=== PATIENT | male | born 1940 | race Caucasian/White ===

== ENCOUNTER 2017-12-09 12:47 | Inpatient (IN) ==
[2017-12-09 14:20] LABS: Basophils % 0.7 % (0.0-0.8); Eosinophils # 0.1 10*3/uL (0.0-0.87); Hematocrit 37.2 VOL% (42.0-52.0); Hemoglobin 12.8 GM/DL (14.0-18.0); Immature Granulocytes % 0.5 %; Immature Granulocytes Absolute 0.03 #; Lymphocytes # 2.1 10*3/uL (1.4-4.0); Lymphocytes % 34.3 % (21.2-54.2); Mean Corpuscular HGB Conc 34.4 GM/DL (32-36); Mean Corpuscular Hemoglobin 32 PG (27-34); Mean Corpuscular Volume 91.9 FL (87-102); Mean Platelet Volume 9.1 FL (9.6-12.0); Monocytes # 0.6 10*3/uL (0.11-0.8); Monocytes % 10.5 % (1.7-12.7); Neutrophils # 3.3 10*3/uL (1.4-7.4); Platelet Count 238 T/CUMM (130-400); Red Blood Count 4.05 MC/CUMM (3.8-5.5); Red Cell Distribution Width 13.2 % (9.3-17.3); White Blood Count 6.1 T/CUMM (4-12)
[2017-12-09 14:30] LABS: PT Patient Result 10.8 SECS; Partial Thromboplastin Time 26.1 SECS (0-40)
[2017-12-09 15:00] LABS: Calcium 8.9 MG/DL (8.5-10.1); Potassium 4.1 MMOL/L (3.5-5.1); Troponin I Only 0.029 NG/ML (0.00-0.045)
[2017-12-09] MEDS ORDERED: GLUCAGON 1 MG VIAL IM PRN (15:59)
[2017-12-09] MEDS ORDERED: DEXTROSE 50% 25 GM/50 ML VIAL IV PRN (15:59)
[2017-12-09] MEDS ORDERED: ACETAMINOPHEN 325 MG TABLET PO PRN (15:59)
[2017-12-09] MEDS ORDERED: MORPHINE 4 MG/1 ML VIAL IV PRN (15:59)
[2017-12-09] MEDS ORDERED: ONDANSETRON 4 MG/2 ML VIAL IV PRN (15:59)
[2017-12-09] MEDS ORDERED: ENOXAPARIN 40 MG/0.4 ML SYRINGE SUBCUT SCH (16:00)
[2017-12-09] MEDS: INSULIN LISPRO 100 UNIT/ML SUBCUT SCH ×2 (17:54→20:09)
[2017-12-09] MEDS: PANTOPRAZOLE 40 MG TABLET PO SCH (17:55)
[2017-12-09] MEDS: RANOLAZINE 500 MG TABLET PO SCH (21:42)
[2017-12-10 04:28] LABS: Basophils % 0.6 % (0.0-0.8); Eosinophils # 0.1 10*3/uL (0.0-0.87); Eosinophils % 1.1 % (0.00-10.9); Hematocrit 38.6 VOL% (42.0-52.0); Hemoglobin 12.7 GM/DL (14.0-18.0); Immature Granulocytes % 0.4 %; Immature Granulocytes Absolute 0.03 #; Lymphocytes # 2.9 10*3/uL (1.4-4.0); Mean Corpuscular HGB Conc 32.9 GM/DL (32-36); Mean Corpuscular Hemoglobin 31 PG (27-34); Mean Corpuscular Volume 93.5 FL (87-102); Mean Platelet Volume 9.6 FL (9.6-12.0); Monocytes # 0.9 10*3/uL (0.11-0.8); Monocytes % 12.1 % (1.7-12.7); Neutrophils # 3.1 10*3/uL (1.4-7.4); Neutrophils % 44.8 % (38.7-73.9); Platelet Count 217 T/CUMM (130-400); Red Blood Count 4.13 MC/CUMM (3.8-5.5); Red Cell Distribution Width 13.3 % (9.3-17.3)
[2017-12-10 05:02] LABS: Calcium 8.2 MG/DL (8.5-10.1); Osmolality,Calculated 282.5 MOS/KG (273-304); Potassium 4.4 MMOL/L (3.5-5.1); Risk Ratio 2.17; Thyroid Stimulating Hormone 4.81 uIU/ml (0.358-3.74); VLDL CHOLESTEROL 29.6 MG/DL
[2017-12-10] MEDS ORDERED: AMIODARONE 200 MG TABLET PO SCH (09:00)
[2017-12-10] MEDS ORDERED: ASPIRIN EC 325 MG TABLET PO SCH (09:00)
[2017-12-10] MEDS: ATORVASTATIN 80 MG TABLET PO SCH (10:07)
[2017-12-10] MEDS: OMEGA 3 ACID ETHYL ESTERS 1 GM CAPSULE PO SCH (10:07)
[2017-12-10] MEDS: RANOLAZINE 500 MG TABLET PO SCH ×2 (10:07→20:31)
[2017-12-10] MEDS: TAMSULOSIN 0.4 MG CAPSULE PO SCH (10:07)
[2017-12-10] MEDS: SERTRALINE 100 MG TABLET PO SCH (10:07)
[2017-12-10] MEDS: FINASTERIDE 5 MG TABLET PO SCH (10:07)
[2017-12-10] MEDS: hydroCHLOROthiazide 12.5 MG CAPSULE PO SCH (10:07)
[2017-12-10] MEDS: LISINOPRIL 10 MG TABLET PO SCH (10:07)
[2017-12-10] MEDS: INSULIN LISPRO 100 UNIT/ML SUBCUT SCH ×4 (10:08→20:25)
[2017-12-10] MEDS: MULTIVITAMIN (CENTRUM) TABLET PO SCH (10:08)
[2017-12-10] MEDS: FLUTICASONE 50 MCG NASAL SPRAY 16 GM BOTTLE BOTH NARES SCH (11:18)
[2017-12-10] MEDS ORDERED: ASPIRIN EC 81 MG TABLET PO SCH (13:28)
[2017-12-10] MEDS: amLODIPine 5 MG TABLET PO SCH (14:53)
[2017-12-10] MEDS: ENOXAPARIN 120 MG/0.8 ML SYRINGE SUBCUT SCH (14:54)
[2017-12-10] MEDS: sitaGLIPtin 100 MG TABLET PO SCH (15:34)
[2017-12-10] MEDS: GLIMEPIRIDE 4 MG TABLET PO SCH (17:04)
[2017-12-10] MEDS: PANTOPRAZOLE 40 MG TABLET PO SCH (17:04)
[2017-12-10] MEDS: metFORMIN 500 MG TABLET PO SCH (20:25)
[2017-12-11] MEDS: ENOXAPARIN 120 MG/0.8 ML SYRINGE SUBCUT SCH (01:49)
[2017-12-11 09:10] LABS: Basophils % 0.7 % (0.0-0.8); Eosinophils # 0.1 10*3/uL (0.0-0.87); Eosinophils % 0.8 % (0.00-10.9); Hematocrit 39.2 VOL% (42.0-52.0); Hemoglobin 13.3 GM/DL (14.0-18.0); Immature Granulocytes % 0.3 %; Immature Granulocytes Absolute 0.02 #; Lymphocytes # 1.7 10*3/uL (1.4-4.0); Lymphocytes % 28.5 % (21.2-54.2); Mean Corpuscular HGB Conc 33.9 GM/DL (32-36); Mean Corpuscular Hemoglobin 31 PG (27-34); Mean Corpuscular Volume 92.7 FL (87-102); Monocytes # 0.5 10*3/uL (0.11-0.8); Monocytes % 8.3 % (1.7-12.7); Neutrophils # 3.7 10*3/uL (1.4-7.4); Neutrophils % 61.4 % (38.7-73.9); Platelet Count 212 T/CUMM (130-400); Red Blood Count 4.23 MC/CUMM (3.8-5.5); Red Cell Distribution Width 13.2 % (9.3-17.3)
[2017-12-11] MEDS: metFORMIN 500 MG TABLET PO SCH (09:34)
[2017-12-11] MEDS: MULTIVITAMIN (CENTRUM) TABLET PO SCH (09:34)
[2017-12-11] MEDS: RANOLAZINE 500 MG TABLET PO SCH (09:34)
[2017-12-11] MEDS: amLODIPine 5 MG TABLET PO SCH (09:34)
[2017-12-11] MEDS: GLIMEPIRIDE 4 MG TABLET PO SCH (09:34)
[2017-12-11] MEDS: ATORVASTATIN 80 MG TABLET PO SCH (09:35)
[2017-12-11] MEDS: TAMSULOSIN 0.4 MG CAPSULE PO SCH (09:35)
[2017-12-11] MEDS: FINASTERIDE 5 MG TABLET PO SCH (09:35)
[2017-12-11] MEDS: OMEGA 3 ACID ETHYL ESTERS 1 GM CAPSULE PO SCH (09:35)
[2017-12-11] MEDS: hydroCHLOROthiazide 12.5 MG CAPSULE PO SCH (09:35)
[2017-12-11] MEDS: LISINOPRIL 10 MG TABLET PO SCH (09:35)
[2017-12-11] MEDS: SERTRALINE 100 MG TABLET PO SCH (09:35)
[2017-12-11] MEDS: sitaGLIPtin 100 MG TABLET PO SCH (09:36)
[2017-12-11 09:42] LABS: Calcium 8.6 MG/DL (8.5-10.1); Potassium 4.4 MMOL/L (3.5-5.1)
[2017-12-11 09:55] LABS: Basophils % 0.6 % (0.0-0.8); Eosinophils # 0.1 10*3/uL (0.0-0.87); Eosinophils % 1.1 % (0.00-10.9); Hemoglobin 13.8 GM/DL (14.0-18.0); Immature Granulocytes % 0.2 %; Immature Granulocytes Absolute 0.01 #; Lymphocytes % 29.7 % (21.2-54.2); Mean Corpuscular HGB Conc 34.5 GM/DL (32-36); Mean Corpuscular Hemoglobin 31 PG (27-34); Mean Corpuscular Volume 89.9 FL (87-102); Mean Platelet Volume 9.2 FL (9.6-12.0); Monocytes # 0.5 10*3/uL (0.11-0.8); Monocytes % 7.8 % (1.7-12.7); Neutrophils % 60.6 % (38.7-73.9); Platelet Count 223 T/CUMM (130-400); Red Blood Count 4.45 MC/CUMM (3.8-5.5); Red Cell Distribution Width 13.3 % (9.3-17.3); White Blood Count 6.6 T/CUMM (4-12)
[2017-12-11] MEDS: INSULIN LISPRO 100 UNIT/ML SUBCUT SCH ×2 (10:05→11:53)
[2017-12-11] MEDS: FLUTICASONE 50 MCG NASAL SPRAY 16 GM BOTTLE BOTH NARES SCH (10:06)
[2017-12-11 10:28] LABS: Osmolality,Calculated 285.8 MOS/KG (273-304); Potassium 4.6 MMOL/L (3.5-5.1)
[2017-12-11 11:58] VITALS: BP 133/65
[2017-12-11] MEDS ORDERED: APIXABAN 5 MG TABLET PO SCH (21:00)
== END 2017-12-11 14:25 | disposition home or self-care (01) | DRG 310 ==
LOC: N.ED 12:47 → SUATTDRO 15:24 → N.EDINP 15:24 → N.TELES 17:24
PROVIDERS: ADMIT Internal Medicine; ATTEND Internal Medicine

== ENCOUNTER 2020-05-23 09:38 | Observation (INO) ==
[2020-05-23 10:27] LABS: Basophils % 0.6 % (0.0-0.8); Eosinophils # 0.1 10*3/uL (0.0-0.87); Eosinophils % 1.2 % (0.00-10.9); Hematocrit 33.2 VOL% (42.0-52.0); Hemoglobin 10.9 GM/DL (14.0-18.0); Immature Granulocytes % 0.3 %; Immature Granulocytes Absolute 0.02 #; Lymphocytes # 1.6 10*3/uL (1.4-4.0); Lymphocytes % 24.1 % (21.2-54.2); Mean Corpuscular HGB Conc 32.8 GM/DL (32-36); Mean Corpuscular Volume 84.9 FL (87-102); Mean Platelet Volume 8.7 FL (9.6-12.0); Monocytes % 8.6 % (1.7-12.7); Neutrophils % 65.2 % (38.7-73.9); Platelet Count 245 T/CUMM (130-400); Red Blood Count 3.91 MC/CUMM (3.8-5.5); Red Cell Distribution Width 15.2 % (9.3-17.3); White Blood Count 6.4 T/CUMM (4-12)
[2020-05-23 10:37] LABS: Alanine Aminotransferase 49 U/L (16-61); Albumin 3.4 G/DL (3.4-5.0); Alkaline Phosphatase 84 U/L (45-117); Aspartate Amino Transferase 27 U/L (0-37); Bilirubin,Total < 0.39 MG/DL (0.2-1.0); Blood Urea Nitrogen 18 MG/DL (7-18); Estimated Glom Filtration Rate 59 ML/MIN; Glucose 238 MG/DL (74-106); Osmolality,Calculated 279.1 MOS/KG (273-304); Total Protein 6.7 G/DL (6.4-8.3)
[2020-05-23 10:51] LABS: INR 1.1; PT Patient Result 11.5 SECS (9.8-11.9); Partial Thromboplastin Time 29.3 SECS (23.9-33.8)
[2020-05-23] MEDS ORDERED: FUROSEMIDE 40 MG/4 ML VIAL IV STA (12:43)
[2020-05-23] MEDS ORDERED: MAGNESIUM SULF RIDER 4 GM in PREMIX 1 EACH IV PRN (12:44)
[2020-05-23] MEDS ORDERED: MAGNESIUM SULF RIDER 2 GM in PREMIX 1 EACH IV PRN (12:44)
[2020-05-23] MEDS ORDERED: PANTOPRAZOLE 40 MG TABLET PO SCH (16:30)
[2020-05-23] MEDS ORDERED: metFORMIN 500 MG TABLET PO SCH (17:00)
[2020-05-23] MEDS: GLIMEPIRIDE 4 MG TABLET PO SCH (17:31)
[2020-05-23] MEDS ORDERED: ATORVASTATIN 80 MG TABLET PO SCH (21:00)
[2020-05-23] MEDS ORDERED: SERTRALINE 100 MG TABLET PO SCH (21:00)
[2020-05-23] MEDS ORDERED: INSULIN GLARGINE 100 UNIT/ML SUBCUT SCH (21:00)
[2020-05-23] MEDS: APIXABAN 5 MG TABLET PO SCH (23:09)
[2020-05-23] MEDS: OMEGA 3 ACID ETHYL ESTERS 1 GM CAPSULE PO SCH (23:09)
[2020-05-23] MEDS: METOPROLOL TARTRATE 25 MG TABLET PO SCH (23:10)
[2020-05-23] MEDS: ACETAMINOPHEN 325 MG TABLET PO PRN (23:11)
[2020-05-24] MEDS ORDERED: BISACODYL 5 MG TABLET PO PRN (07:34)
[2020-05-24] MEDS ORDERED: SIMETHICONE CHEW 125 MG TABLET PO PRN (07:34)
[2020-05-24] MEDS ORDERED: DEXTROSE 50% 25 GM/50 ML VIAL IV PRN (07:34)
[2020-05-24] MEDS ORDERED: ALUMINUM/MAGNES/SIMETH MAX STR 30 ML UDCUP PO PRN (07:34)
[2020-05-24] MEDS ORDERED: CALCIUM CARBONATE CHEW 500 MG TABLET PO PRN (07:34)
[2020-05-24] MEDS ORDERED: LACTULOSE 20 GM/30 ML UDCUP PO PRN (07:34)
[2020-05-24] MEDS ORDERED: MORPHINE 4 MG/1 ML VIAL IV PRN (07:34)
[2020-05-24] MEDS ORDERED: POTASSIUM CHLORIDE 20 MEQ TABLET PO PRN (07:34)
[2020-05-24] MEDS ORDERED: diphenhydrAMINE CAP 25 MG CAPSULE PO PRN (07:34)
[2020-05-24] MEDS ORDERED: hydrALAZINE 20 MG/1 ML VIAL IV PRN (07:34)
[2020-05-24] MEDS ORDERED: GLUCAGON 1 MG VIAL IM PRN (07:34)
[2020-05-24] MEDS ORDERED: ZALEPLON 5 MG CAPSULE PO PRN (07:34)
[2020-05-24] MEDS ORDERED: guaiFENesin/DM ER 600-30 MG TABLET PO PRN (07:34)
[2020-05-24] MEDS ORDERED: ONDANSETRON 4 MG/2 ML VIAL IV PRN (07:34)
[2020-05-24] MEDS ORDERED: amLODIPine 10 MG TABLET PO SCH (09:00)
[2020-05-24] MEDS ORDERED: MULTIVITAMIN (CENTRUM) TABLET PO SCH (09:00)
[2020-05-24] MEDS ORDERED: FINASTERIDE 5 MG TABLET PO SCH (09:00)
[2020-05-24] MEDS ORDERED: ASPIRIN EC 81 MG TABLET PO SCH (09:00)
[2020-05-24] MEDS ORDERED: sitaGLIPtin 100 MG TABLET PO SCH (09:00)
[2020-05-24] MEDS ORDERED: FUROSEMIDE 20 MG TABLET PO SCH (09:00)
[2020-05-24] MEDS: GLIMEPIRIDE 4 MG TABLET PO SCH (09:49)
[2020-05-24] MEDS: APIXABAN 5 MG TABLET PO SCH (09:49)
[2020-05-24] MEDS: OMEGA 3 ACID ETHYL ESTERS 1 GM CAPSULE PO SCH (09:49)
[2020-05-24] MEDS: METOPROLOL TARTRATE 25 MG TABLET PO SCH (09:49)
[2020-05-24] MEDS ORDERED: CETIRIZINE 10 MG TABLET PO SCH (10:00)
[2020-05-24] MEDS ORDERED: FLUTICASONE 50 MCG NASAL SPRAY 16 GM BOTTLE BOTH NARES SCH (10:00)
[2020-05-24] MEDS: ACETAMINOPHEN 325 MG TABLET PO PRN (10:29)
[2020-05-24] MEDS ORDERED: INSULIN LISPRO 100 UNIT/ML SUBCUT SCH (11:30)
[2020-05-24 12:24] VITALS: BP 130/55
[2020-05-24] MEDS ORDERED: ALBUTEROL 2.5 MG/3 ML NEB RESP TX SCH (13:00)
== END 2020-05-24 14:32 | disposition home or self-care (01) ==
LOC: N.EDINP 09:38 → N.ED 09:38 → N.EDINP 14:18 → N.TELES 14:24
PROVIDERS: ADMIT Internal Medicine Cardiovascular Disease; ATTEND Internal Medicine Cardiovascular Disease

== ENCOUNTER 2021-08-03 15:06 | Inpatient (IN) ==
[2021-08-03 15:30] LABS: Basophils % 0.3 % (0.0-0.8); Eosinophils # 0.1 10*3/uL (0.0-0.87); Eosinophils % 0.7 % (0.00-10.9); Hematocrit 39.7 VOL% (42.0-52.0); Hemoglobin 12.8 GM/DL (14.0-18.0); Immature Granulocytes % 0.5 %; Immature Granulocytes Absolute 0.04 #; Lymphocytes # 1.4 10*3/uL (1.4-4.0); Lymphocytes % 16.3 % (21.2-54.2); Mean Corpuscular HGB Conc 32.2 GM/DL (32-36); Mean Corpuscular Volume 87.1 FL (87-102); Mean Platelet Volume 8.3 FL (9.6-12.0); Monocytes % 9.6 % (1.7-12.7); Neutrophils % 72.6 % (38.7-73.9); Platelet Count 309 T/CUMM (130-400); Red Blood Count 4.56 MC/CUMM (3.8-5.5); Red Cell Distribution Width 14.6 % (9.3-17.3); White Blood Count 8.7 T/CUMM (4-12)
[2021-08-03 15:43] LABS: PT Patient Result 11.6 SECS (10.5-12.0); Partial Thromboplastin Time 28.8 SECS (23.8-32.1)
[2021-08-03 16:00] LABS: Albumin 3.9 G/DL (3.4-5.0); Bilirubin,Total 0.4 MG/DL (0.20-1.00); Calcium 9.9 MG/DL (8.5-10.1); Osmolality,Calculated 283.1 MOS/KG (273-304); Potassium 4.7 MMOL/L (3.5-5.1); Total Protein 7.8 G/DL (6.4-8.2)
[2021-08-03] MEDS ORDERED: GLUCAGON 1 MG VIAL IM PRN (16:40)
[2021-08-03] MEDS ORDERED: DEXTROSE 10% 250 ML BAG IV PRN (16:40)
[2021-08-03] MEDS ORDERED: ASPIRIN 325 MG TABLET PO STA (16:52)
[2021-08-03] MEDS ORDERED: POTASSIUM CHLORIDE 20 MEQ TABLET PO PRN ×2 (17:06)
[2021-08-03] MEDS ORDERED: MORPHINE 2 MG/1 ML SYRINGE IV PRN (17:06)
[2021-08-03] MEDS ORDERED: MAGNESIUM SULF RIDER 2 GM/50 ML PREMIX IV PRN (17:06)
[2021-08-03] MEDS ORDERED: hydrALAZINE 20 MG/1 ML VIAL IV PRN (17:06)
[2021-08-03] MEDS ORDERED: MAGNESIUM SULF RIDER 4 GM/100 ML PREMIX IV PRN (17:06)
[2021-08-03] MEDS ORDERED: guaiFENesin/DM ER 600-30 MG TABLET PO PRN (17:06)
[2021-08-03] MEDS ORDERED: DOCUSATE SODIUM 100 MG CAPSULE PO PRN (17:06)
[2021-08-03] MEDS ORDERED: ONDANSETRON 4 MG/2 ML VIAL IV PRN (17:06)
[2021-08-03] MEDS ORDERED: ACETAMINOPHEN 325 MG TABLET PO PRN (17:06)
[2021-08-03] MEDS ORDERED: SODIUM CHLORIDE 0.9% 1,000 ML IV SCH (17:30)
[2021-08-03] MEDS ORDERED: NITROGLYCERIN SL 0.4 MG TABLET SL PRN (17:38)
[2021-08-03] MEDS ORDERED: SODIUM CHLORIDE 0.9% 250 ML IV ONE (18:21)
[2021-08-03] MEDS ORDERED: NON-FORMULARY MEDICATION (Omeprazole 20 MG capsule,delayed release(DR/EC)) PO SCH (19:00)
[2021-08-03] MEDS: ALBUTEROL 2.5 MG/3 ML NEB RESP TX SCH (19:37)
[2021-08-03] MEDS: TAMSULOSIN 0.4 MG CAPSULE PO SCH (21:14)
[2021-08-03] MEDS: ATORVASTATIN 80 MG TABLET PO SCH (21:14)
[2021-08-03] MEDS: INSULIN REGULAR 100 UNIT/ML SUBCUT SCH (21:15)
[2021-08-03] MEDS: SERTRALINE 100 MG TABLET PO SCH (21:15)
[2021-08-03] MEDS: LOSARTAN 25 MG TABLET PO SCH (21:15)
[2021-08-03] MEDS: APIXABAN 5 MG TABLET PO SCH (21:15)
[2021-08-03] MEDS: carvediloL 12.5 MG TABLET PO SCH (21:15)
[2021-08-04] MEDS: ALBUTEROL 2.5 MG/3 ML NEB RESP TX SCH ×4 (01:55→20:01)
[2021-08-04 05:30] LABS: Basophils % 0.3 % (0.0-0.8); Eosinophils % 0.1 % (0.00-10.9); Hematocrit 33.6 VOL% (42.0-52.0); Hemoglobin 10.6 GM/DL (14.0-18.0); Immature Granulocytes % 0.7 %; Immature Granulocytes Absolute 0.05 #; Lymphocytes # 1.3 10*3/uL (1.4-4.0); Lymphocytes % 17.7 % (21.2-54.2); Mean Corpuscular HGB Conc 31.5 GM/DL (32-36); Mean Corpuscular Volume 88.7 FL (87-102); Mean Platelet Volume 8.7 FL (9.6-12.0); Monocytes % 12.2 % (1.7-12.7); Platelet Count 230 T/CUMM (130-400); Red Blood Count 3.79 MC/CUMM (3.8-5.5); Red Cell Distribution Width 14.6 % (9.3-17.3); White Blood Count 7.2 T/CUMM (4-12)
[2021-08-04 05:38] LABS: Osmolality,Calculated 279.2 MOS/KG (273-304); Potassium 4.1 MMOL/L (3.5-5.1); Risk Ratio 1.72; VLDL Cholesterol 12.2 MG/DL
[2021-08-04] MEDS ORDERED: amLODIPine 10 MG TABLET PO SCH (09:00)
[2021-08-04] MEDS: FUROSEMIDE 40 MG TABLET PO SCH (09:32)
[2021-08-04] MEDS: sitaGLIPtin 25 MG TABLET PO SCH (09:32)
[2021-08-04] MEDS: APIXABAN 5 MG TABLET PO SCH ×2 (09:33→21:02)
[2021-08-04] MEDS: PANTOPRAZOLE 40 MG TABLET PO SCH (09:33)
[2021-08-04] MEDS: ISOSORBIDE MONONITRATE 30 MG TABLET PO SCH (09:33)
[2021-08-04] MEDS: LOSARTAN 25 MG TABLET PO SCH (09:33)
[2021-08-04] MEDS: GLIMEPIRIDE 4 MG TABLET PO SCH ×2 (09:33→17:55)
[2021-08-04] MEDS: FINASTERIDE 5 MG TABLET PO SCH (09:33)
[2021-08-04] MEDS: carvediloL 12.5 MG TABLET PO SCH (09:33)
[2021-08-04] MEDS: INSULIN REGULAR 100 UNIT/ML SUBCUT SCH ×4 (09:38→21:02)
[2021-08-04] MEDS ORDERED: FLUTICASONE 50 MCG NASAL SPRAY 16 GM BOTTLE BOTH NARES PRN (10:41)
[2021-08-04] MEDS ORDERED: DOCUSATE SODIUM 100 MG CAPSULE PO PRN (10:41)
[2021-08-04] MEDS: SOTALOL 80 MG TABLET PO SCH (11:45)
[2021-08-04] MEDS ORDERED: FUROSEMIDE 40 MG/4 ML VIAL IV ONE (16:29)
[2021-08-04] MEDS: SERTRALINE 100 MG TABLET PO SCH (21:01)
[2021-08-04] MEDS: ATORVASTATIN 80 MG TABLET PO SCH (21:02)
[2021-08-04] MEDS: INSULIN GLARGINE 100 UNIT/ML SUBCUT SCH (21:02)
[2021-08-04] MEDS: TAMSULOSIN 0.4 MG CAPSULE PO SCH (21:02)
[2021-08-05] MEDS: ALBUTEROL 2.5 MG/3 ML NEB RESP TX SCH ×4 (00:33→19:20)
[2021-08-05 06:29] LABS: Basophils % 0.3 % (0.0-0.8); Eosinophils % 0.5 % (0.00-10.9); Hematocrit 33.6 VOL% (42.0-52.0); Hemoglobin 10.7 GM/DL (14.0-18.0); Immature Granulocytes % 0.5 %; Immature Granulocytes Absolute 0.04 #; Lymphocytes # 1.3 10*3/uL (1.4-4.0); Lymphocytes % 17.7 % (21.2-54.2); Mean Corpuscular HGB Conc 31.8 GM/DL (32-36); Mean Corpuscular Volume 87.3 FL (87-102); Mean Platelet Volume 8.6 FL (9.6-12.0); Monocytes % 12.6 % (1.7-12.7); Neutrophils % 68.4 % (38.7-73.9); Platelet Count 260 T/CUMM (130-400); Red Blood Count 3.85 MC/CUMM (3.8-5.5); Red Cell Distribution Width 14.6 % (9.3-17.3); White Blood Count 7.4 T/CUMM (4-12)
[2021-08-05 06:42] LABS: Calcium 9.2 MG/DL (8.5-10.1)
[2021-08-05] MEDS ORDERED: ASPIRIN EC 81 MG TABLET PO SCH (09:00)
[2021-08-05] MEDS: INSULIN REGULAR 100 UNIT/ML SUBCUT SCH ×4 (09:47→21:20)
[2021-08-05] MEDS ORDERED: DEXTROSE 10% 25 GM/250 ML BAG IV PRN (10:21)
[2021-08-05] MEDS: FUROSEMIDE 40 MG TABLET PO SCH (10:49)
[2021-08-05] MEDS: MULTIVITAMIN (CENTRUM) TABLET PO SCH (10:49)
[2021-08-05] MEDS: GLIMEPIRIDE 4 MG TABLET PO SCH ×2 (10:50→18:12)
[2021-08-05] MEDS: FINASTERIDE 5 MG TABLET PO SCH (10:50)
[2021-08-05] MEDS: SOTALOL 80 MG TABLET PO SCH (10:50)
[2021-08-05] MEDS: ISOSORBIDE MONONITRATE 30 MG TABLET PO SCH (10:50)
[2021-08-05] MEDS: PANTOPRAZOLE 40 MG TABLET PO SCH (10:51)
[2021-08-05] MEDS: sitaGLIPtin 25 MG TABLET PO SCH (10:51)
[2021-08-05] MEDS: LOSARTAN 25 MG TABLET PO SCH (10:51)
[2021-08-05] MEDS: MONTELUKAST 10 MG TABLET PO SCH (10:51)
[2021-08-05] MEDS: SERTRALINE 100 MG TABLET PO SCH (21:19)
[2021-08-05] MEDS: ATORVASTATIN 80 MG TABLET PO SCH (21:19)
[2021-08-05] MEDS: TAMSULOSIN 0.4 MG CAPSULE PO SCH (21:19)
[2021-08-05] MEDS: INSULIN GLARGINE 100 UNIT/ML SUBCUT SCH (21:20)
[2021-08-06] MEDS: ALBUTEROL 2.5 MG/3 ML NEB RESP TX SCH ×3 (00:55→14:53)
[2021-08-06 06:40] LABS: Basophils % 0.4 % (0.0-0.8); Eosinophils % 0.5 % (0.00-10.9); Hematocrit 34.7 VOL% (42.0-52.0); Hemoglobin 10.9 GM/DL (14.0-18.0); Immature Granulocytes % 0.4 %; Immature Granulocytes Absolute 0.03 #; Lymphocytes # 1.3 10*3/uL (1.4-4.0); Lymphocytes % 16.6 % (21.2-54.2); Mean Corpuscular HGB Conc 31.4 GM/DL (32-36); Mean Corpuscular Volume 88.1 FL (87-102); Mean Platelet Volume 8.7 FL (9.6-12.0); Monocytes % 13.6 % (1.7-12.7); Neutrophils % 68.5 % (38.7-73.9); Platelet Count 266 T/CUMM (130-400); Red Blood Count 3.94 MC/CUMM (3.8-5.5); Red Cell Distribution Width 14.6 % (9.3-17.3)
[2021-08-06 07:05] LABS: Calcium 8.9 MG/DL (8.5-10.1); Osmolality,Calculated 272.1 MOS/KG (273-304); Potassium 3.8 MMOL/L (3.5-5.1)
[2021-08-06] MEDS: FINASTERIDE 5 MG TABLET PO SCH (08:45)
[2021-08-06] MEDS: MULTIVITAMIN (CENTRUM) TABLET PO SCH (08:46)
[2021-08-06] MEDS: ISOSORBIDE MONONITRATE 30 MG TABLET PO SCH (08:46)
[2021-08-06] MEDS: MONTELUKAST 10 MG TABLET PO SCH (08:46)
[2021-08-06] MEDS: PANTOPRAZOLE 40 MG TABLET PO SCH (08:46)
[2021-08-06] MEDS: sitaGLIPtin 25 MG TABLET PO SCH (08:47)
[2021-08-06] MEDS: SOTALOL 80 MG TABLET PO SCH (08:47)
[2021-08-06] MEDS: GLIMEPIRIDE 4 MG TABLET PO SCH (08:47)
[2021-08-06] MEDS: FUROSEMIDE 40 MG TABLET PO SCH (08:47)
[2021-08-06] MEDS: LOSARTAN 25 MG TABLET PO SCH (08:47)
[2021-08-06] MEDS: INSULIN REGULAR 100 UNIT/ML SUBCUT SCH ×2 (08:48→13:16)
[2021-08-06 12:37] VITALS: BP 126/62
== END 2021-08-06 15:59 | disposition home or self-care (01) | DRG 313 ==
LOC: N.EDINP 15:06 → N.ED 15:06 → N.TELES 20:15 → SUATTDRO 08-05 14:26
PROVIDERS: ADMIT Internal Medicine; ATTEND Phlebology